=== PATIENT | female | born 1990 | race Caucasian/White ===

== ENCOUNTER 2016-11-08 10:37 | Day surgery (SDC) | payer OTHER ==
[~2016-11-08] VITALS: Ht 160 cm; Wt 77.3 kg
[~2016-11-08 10:37] MED LIST: ALBU8.5H2 INHALATION; AMPH30TA3 PO; BENZ-12 PO; CETI10CA PO; FLUT9.9S NS; LISD30CA3 PO; MAGN250T PO; PSEU30CA2 PO; [UNRECOGNIZED DRUG - CODE] IM
[2016-11-08 11:07] VITALS: BP 118/80; PULSE 100; RESP 14; O2SAT 100
[2016-11-08] MEDS ORDERED: 0.9% Sodium Chloride 1,000 ML IV PRN (11:22)
[2016-11-08] MEDS ORDERED: fentaNYL-PF 50 mCg/mL 2 mL Inj IVPUSH PRN (11:25)
[2016-11-08] MEDS ORDERED: Sodium Chloride LOK Flush 10 mL Syringe IV PRN (11:25)
[2016-11-08 12:28] VITALS: BP 104/68; PULSE 84; RESP 16; O2SAT 100
--- NOTE | 2016-11-08 12:30 | PCM.ENDCOL ---
Colonoscopy Date of Service: Nov 08, 2016 Physician Usama Cade MD Pre Procedure Diagnosis: Abdominal pain Post Procedure Dx & Findings: Polyp and hemorrhoids Procedure Colonoscopy Prep adequate Withdrawal 11 minutes PROCEDURE IN DETAIL: After unremarkable rectal examination Olympus video colonoscope was inserted patient's anal canal and was advanced to cecum. Landmarks are identified including the ileocecal valve and appendiceal orifice. Scope further events the terminal ileum which showed normal villous structures without any ulcer or mass or erosions. We advanced 8 cm. Scope was drawn systematically. In the transverse colon there was a 3-4 mm polyp which was removed completely using cold snare. The mucosa of the cecum, ascending, transverse, descending, sigmoid, rectal mucosa lined with whitish, pink, smooth, glistening, normal-appearing mucosa, normal fine branching, underlying vascularity, normal haustra. The patient tolerated procedure and was transported to observation area. In the rectum retroflexion was done which showed hemorrhoids anal canal was inspected carefully on the way out and hemorrhoids noted. Impression No source of abdominal pain Normal terminal ileum Normal colon Polyp 1 status post complete removal Hemorrhoids Recommendation Repeat colonoscopy 1-2 years if it comes back as adenomatous polyp. Presedation Assessment Risks and Benefits Informed consent was obtained from the patient after all risks and benefits including but not limited to drug reaction, infection, pain, bleeding, perforation, as well as alternatives were discussed. Patient monitoring Continuous pulse oximetry, cardiac monitoring, blood pressure monitoring, IV access, and oxygen at 2L per nasal cannula. Periprocedural Fentanyl: Fentanyl 125mcg Incrementally Midazolam: Midazolam 5mg Incrementally Diphenhydramine: Diphenhydramine 25 mg IV Complications There were no periprocedural complications identified. Post Procedure Plan Post Procedure Recommendations 1. Restrict activities today. 2. Resume normal activities in the morning. 3. Resume medications. 4. Patient informed of normal post procedure side effects as bloating, drowsiness, blood streaking in the stool. 5. average risk CRCS. If colon polyps come back as: -Hyperplastic- can repeat colonoscopy in 10 years -Tubular adenoma- repeat colonoscopy in 5 years -Tubulovillous/villous adenoma- repeat colonoscopy in 3 years -If any dysplasia- return to clinic as soon as possible 6. Please don't hesitate to call me with any questions. Usama Cade MD Nov 08, 2016 12:30
[2016-11-08 12:45] VITALS: BP 117/72; PULSE 75; RESP 14; O2SAT 100
[2016-11-08 12:51] VITALS: BP 107/75; PULSE 14; RESP 14; O2SAT 98
--- NOTE | 2016-11-11 10:09 | PATH ---
SURGICAL PATHOLOGY Attending Physician:Usama Cade M.D. CASE STATUS: Signed Out PATIENT NAME: JOSEF BAXTER PID: [id number] : 1990 DATE COLLECTED:11/08/2016 20:34 SPECIMEN: Colon, Biopsy CLINICAL HISTORY: 1). TRANSVERSE POLYP X1 FINAL DIAGNOSIS: 1.TRANSVERSE COLON POLYP: SESSILE SERRATED ADENOMA. ICD10 CODE D12.3 GROSS DESCRIPTION: The specimen is received in one formalin filled container labeled with the patient's name, sublabeled "transverse polyp" and consists of 5 portions of tissue which aggregate to 0.3 x 0.3 x 0.2 CM. The specimen is entirely submitted in one cassette. 11/08/2016 DAC MICRO DESCRIPTION: See diagnosis. ICD-9 CODES: CPT CODES: 1: 91602 Electronically Signed Out Rafael Cohen MD [facility] Pathology [facility] [address], [place] [address] Technical component performed at [facility], [facility] [address], [place], [address]
== END 2016-11-08 23:59 | disposition home or self-care (01) ==
LOC: END 10:37
PROVIDERS: ATTEND Internal Medicine
DX: D12.3 Benign neoplasm of transverse colon (principal); K58.9 Irritable bowel syndrome, unspecified; K64.8 Other hemorrhoids; F17.210 Nicotine dependence, cigarettes, uncomplicated; Z79.899 Other long term (current) drug therapy